=== PATIENT | female | born 1985 | race Caucasian/White ===

== ENCOUNTER 2020-02-29 14:52 | Emergency (ER) | payer MEDICAID ==
[~2020-02-29] VITALS: Ht 157.5 cm; Wt 59.0 kg
[~2020-02-29 14:52] MED LIST: CLON-527 PO; SERT25TA PO
--- NOTE | 2020-02-29 15:40 | NUR ---
PT PLACED IN ROOM T2 TILL ROOM AVAILABLE.
--- NOTE | 2020-02-29 16:00 | NUR ---
PT REMAINS CALM AND COOPERATIVE AND DENIES NEEDS AT PRESENT TIME.
--- NOTE | 2020-02-29 16:15 | NUR ---
PT GIVEN WARM BLANKETS PT COLD, PT DENIES FURTHER NEEDS.
[2020-02-29 17:27] LABS: BASOPHILS # (AUTO) 0.1 X10'3 (0-0.2); BASOPHILS % (AUTO) 0.7 % (0-1); EOSINOPHILS # (AUTO) 0.1 X10'3 (0-0.9); EOSINOPHILS % (AUTO) 1.4 % (0-6); HEMATOCRIT 43.9 % (35.0-45.0); HEMOGLOBIN 14.4 g/dl (12.0-16.0); LYMPHOCYTES # (AUTO) 2.8 X10'3 (1.1-4.8); LYMPHOCYTES % (AUTO) 27.4 % (21-51); MEAN CORPUSCULAR HEMOGLOBIN 31.3 PG (27.0-31.0); MEAN CORPUSCULAR HGB CONC 32.8 g/dL (33.0-36.5); MEAN CORPUSCULAR VOLUME 95.4 FL (78-98); MEAN PLATELET VOLUME 6.8 FL (7.4-10.4); MONOCYTES # (AUTO) 0.7 X10'3 (0-0.9); MONOCYTES % (AUTO) 7.3 % (2-12); NEUTROPHILS # (AUTO) 6.5 X10'3 (1.8-7.7); NEUTROPHILS % (AUTO) 63.2 % (42-75); PLATELET COUNT 309 X10'3 (140-440); RED CELL DISTRIBUTION WIDTH 14.2 % (11.5-14.5); WHITE BLOOD COUNT 10.2 X10'3 (4.5-11.0)
--- NOTE | 2020-02-29 17:46 | NUR ---
Pt. brought over to bed 25, patient is tearful.
[2020-02-29 17:53] LABS: ALANINE AMINOTRANSFERASE 23 U/L (12-78); ALBUMIN 3.9 G/DL (3.4-5.0); ALBUMIN/GLOBULIN RATIO 1.1 (1.1-1.5); ALKALINE PHOSPHATASE 79 IU/L (46-116); ANION GAP 9 (8-16); ASPARTATE AMINO TRANSFERASE 16 U/L (10-37); BILIRUBIN,TOTAL 0.4 MG/DL (0.1-1.0); BLOOD UREA NITROGEN 8 MG/DL (7-18); BUN/CREATININE RATIO 11.3 (6.6-38.0); CALCIUM 8.8 MG/DL (8.5-10.1); CHLORIDE 108 MMOL/L (99-107); CREATININE 0.71 MG/DL (0.40-0.90); GLUCOSE 93 MG/DL (70-104); SODIUM 144 MMOL/L (135-145); TOTAL CARBON DIOXIDE 26.6 MMOL/L (24-32); TOTAL PROTEIN 7.5 G/DL (6.4-8.2); eGFR > 90 ML/MIN
--- NOTE | 2020-02-29 17:56 | NUR ---
registration checking in patient
[2020-02-29 17:59] LABS: ETHANOL < 0.010 GM/DL (0.0-0.010)
[2020-02-29 18:06] LABS: URINE HCG NEGATIVE (NEG)
[2020-02-29 18:18] LABS: COLOR,URINE YELLOW (Yellow); GLUCOSE, URINE NEGATIVE (Neg); KETONES,URINE NEGATIVE (Neg); LEUKOCYTE ESTERASE ,URINE NEGATIVE (Neg); NITRITES, URINE NEGATIVE (Neg); OCCULT BLOOD,URINE LARGE (Neg); PH,URINE 5.5 (4.8-8.0); PROTEIN,URINE NEGATIVE (Neg); UROBILINOGEN,URINE 0.2 E.U/dL (0.2-1.0)
[2020-02-29 18:19] LABS: URINE AMPHETAMINE SCREEN NEGATIVE (Neg); URINE BARBITUATE SCREEN NEGATIVE (Neg); URINE BENZODIAZEPINES SCREEN NEGATIVE (Neg); URINE CANNABINOID SCREEN POSITIVE (Neg); URINE COCAINE SCREEN NEGATIVE (Neg); URINE METHADONE SCREEN NEGATIVE (Neg); URINE OPIATE SCREEN NEGATIVE (Neg); URINE PHENCYCLIDINE SCREEN NEGATIVE (Neg)
[2020-02-29 18:41] LABS: UA COLLECTION TYPE NON-SPECIFIED
[2020-02-29 18:43] LABS: CLARITY,URINE SLIGHTLY CLOUDY (Clear)
[2020-02-29 18:44] LABS: BACTERIA,URINE NONE SEEN /HPF (Neg); RBC,URINE 0-2 /HPF (0-2); SQUAMOUS EPITHELIAL CELL,UR FEW /LPF (FEW); WBC,URINE 0-4 /HPF (0-4)
--- NOTE | 2020-02-29 19:07 | NUR ---
Pt states she is going through outpatient rehab through [facility] and her ex has been taking her to [facility] for 2 years. She is under a lot of stress with this and the counselor at [facility] suggested she come her.
--- NOTE | 2020-02-29 20:00 | NUR ---
Pt eating dinner. Late dinner tray served.
--- NOTE | 2020-02-29 21:00 | NUR ---
[facility] has assessed pt.
--- NOTE | 2020-02-29 22:00 | NUR ---
Pt resting quietly, respirations normal, no s/s of distress.
--- NOTE | 2020-02-29 23:22 | NUR ---
Pt resting quietly, respirations normal, no s/s of distress.
--- NOTE | 2020-03-01 | NUR ---
Pt resting quietly, respirations normal, no s/s of distress.
--- NOTE | 2020-03-01 01:00 | NUR ---
Pt resting quietly, respirations normal, no s/s of distress.
--- NOTE | 2020-03-01 02:00 | NUR ---
Pt resting quietly, respirations normal, no s/s of distress.
--- NOTE | 2020-03-01 03:34 | NUR ---
Pt resting quietly, respirations normal, no s/s of distress.
--- NOTE | 2020-03-01 05:12 | NUR ---
Pt resting quietly, respirations normal, no s/s of distress.
[2020-03-01 05:57] VITALS: BP 101/50
--- NOTE | 2020-03-01 07:00 | NUR ---
informed that the night nurse did a nurse to nurse at [facility] during the night.
[2020-03-01] MEDS ORDERED: SERT50TA PO (09:19)
[2020-03-01] MEDS ORDERED: CHOL400T27 PO (09:19)
[2020-03-01] MEDS ORDERED: GABA300C PO (09:19)
[2020-03-01] MEDS ORDERED: HYDR-3686 PO (09:19)
[2020-03-01] MEDS ORDERED: CLON-527 PO (09:19)
[2020-03-01] MEDS ORDERED: ALBU8HFA PO (09:19)
--- NOTE | 2020-03-01 10:07 | NUR ---
just informed that [facility] is accepting the pt and informed the pt of this. pt is getting dressed in her clothes as transport should be here any minute.
[2020-03-01] MEDS ORDERED: albuterol 2.5 MG/3 ML nebule NEB PRN (10:10)
[2020-03-01] MEDS ORDERED: hydrOXYzine 25 MG tablet PO PRN (10:10)
[2020-03-01] MEDS ORDERED: clonazePAM 1mg tablet PO SCH (20:00)
[2020-03-01] MEDS ORDERED: gabapentin 300mg capsule PO SCH (21:00)
[2020-03-02] MEDS ORDERED: cholecalciferol (vitamin D) 400 unit tablet PO SCH (08:00)
[2020-03-02] MEDS ORDERED: sertraline 50mg tablet PO SCH (08:00)
== END 2020-03-01 10:15 ==
LOC: ER 14:52
DX: F32.9 Major depressive disorder, single episode, unspecified (principal); F17.200 Nicotine dependence, unspecified, uncomplicated; F12.90 Cannabis use, unspecified, uncomplicated; Z79.899 Other long term (current) drug therapy
CPT/HCPCS: 36415; 80053; 80305; 80320; 81001; 81025; 84443; 85025; 99285

== ENCOUNTER 2022-12-22 11:11 | Emergency (ER) | payer MEDICAID ==
[~2022-12-22] VITALS: Ht 158.8 cm; Wt 65.9 kg
[~2022-12-22 11:11] MED LIST changes: +ALBU8HFA PO; +CHOL400T58 PO; +GABA300C PO; +HYDR-3686 PO; -SERT25TA PO; +SERT50TA PO
[2022-12-22 12:19] LABS: ALANINE AMINOTRANSFERASE 26 U/L (12-78); ALBUMIN 4.4 G/DL (3.4-5.0); ALBUMIN/GLOBULIN RATIO 1.3 (1.1-1.5); ALKALINE PHOSPHATASE 80 IU/L (46-116); ANION GAP 13 (8-16); ASPARTATE AMINO TRANSFERASE 20 U/L (10-37); BASOPHILS % (AUTO) 0.3 % (0-1); BILIRUBIN,TOTAL 0.6 MG/DL (0.1-1.0); BLOOD UREA NITROGEN 14 MG/DL (7-18); BUN/CREATININE RATIO 18.4 (10.0-20.0); CALCIUM 9.6 MG/DL (8.5-10.1); CHLORIDE 104 MMOL/L (99-107); CREATININE 0.76 MG/DL (0.40-0.90); EOSINOPHILS % (AUTO) 0.1 % (0-6); ETHANOL < 0.010 GM/DL (0.0-0.010); GLUCOSE 91 MG/DL (70-104); HEMATOCRIT 46.7 % (35.0-45.0); HEMOGLOBIN 15.4 g/dl (12.0-16.0); LYMPHOCYTES % (AUTO) 17.8 % (21-51); MEAN CORPUSCULAR HGB CONC 33.1 g/dL (33.0-36.5); MEAN CORPUSCULAR VOLUME 93.8 FL (78-98); MEAN PLATELET VOLUME 7.7 FL (7.4-10.4); MONOCYTES # (AUTO) 0.6 X10'3 (0-0.9); MONOCYTES % (AUTO) 5.7 % (2-12); NEUTROPHILS # (AUTO) 8.5 X10'3 (1.8-7.7); NEUTROPHILS % (AUTO) 76.1 % (42-75); PLATELET COUNT 234 X10'3 (140-440); RED BLOOD COUNT 4.97 X10'6 (4.20-5.60); RED CELL DISTRIBUTION WIDTH 13.9 % (11.5-14.5); SODIUM 137 MMOL/L (135-145); TOTAL CARBON DIOXIDE 20.4 MMOL/L (24-32); TOTAL PROTEIN 7.9 G/DL (6.4-8.2); WHITE BLOOD COUNT 11.1 X10'3 (4.5-11.0); eGFR 86 ML/MIN
--- NOTE | 2022-12-22 12:37 | NUR ---
Patient ambulatory from [facility] to ED OF bed 22. Patient appears agitated. Continue to monitor.
[2022-12-22] MEDS ORDERED: POTASSIUM BICARB 20meq eff tab 20 MEQ TABLET.EFF PO STA (12:56)
[2022-12-22] MEDS ORDERED: OLANZapine 2.5MG tablet PO STA (12:56)
[2022-12-22] MEDS ORDERED: magnesium oxide 400mg tablet PO ONE (13:00)
[2022-12-22] MEDS ORDERED: olanzapine 10mg tablet PO STA (13:01)
--- NOTE | 2022-12-22 13:05 | NUR ---
Patient states she is feeling suicidal. Patient states she lost custody of her son about 2-3 weeks ago. Patient became tearful. Patient is homeless. RN asked patient if she has been diagnosed with schizophrenia. Patient states she has but states she does not have schizophrenia. Patient does not want any medication. Continue to monitor.
[2022-12-22] MEDS ORDERED: CLON0.5T4 PO (13:08)
[2022-12-22] MEDS ORDERED: SERT50TA PO (13:08)
[2022-12-22] MEDS ORDERED: HYDR-3686 PO (13:08)
[2022-12-22] MEDS ORDERED: TRAZ-251 PO (13:08)
--- NOTE | 2022-12-22 14:10 | NUR ---
Patient is refusing all medication. K+ in juice at bedside. Patient appears paranoid. Patient did eat all of her food. Continue to monitor.
[2022-12-22] MEDS ORDERED: magnesium hydroxide 30ml (MOM) UD suspension PO ONE (14:15)
--- NOTE | 2022-12-22 14:33 | NUR ---
Patient asked for something for constipation. RN asked if she wanted M.O.M. or prune juice. Patient stated M.O.M. RN opened med in front of patient but patient refused. RN attempted to convince patient but to no avail. Continue to monitor.
--- NOTE | 2022-12-22 15:35 | NUR ---
Patient took the K+ and the M.O.M. Then she went to the to give a urine sample. No distress observed. Continue to monitor.
[2022-12-22 15:50] LABS: CLARITY,URINE SLIGHTLY CLOUDY (Clear); COLOR,URINE YELLOW (Yellow); GLUCOSE, URINE NEGATIVE (Neg); KETONES,URINE >=80 mg/dl (Neg); LEUKOCYTE ESTERASE ,URINE NEGATIVE (Neg); NITRITES, URINE NEGATIVE (Neg); OCCULT BLOOD,URINE MODERATE (Neg); PROTEIN,URINE TRACE mg/dl (Neg); UA COLLECTION TYPE CLN CATCH MIDSTREAM
[2022-12-22 15:53] LABS: URINE HCG NEGATIVE (NEG)
[2022-12-22 16:02] LABS: URINE AMPHETAMINE SCREEN NEGATIVE (Neg); URINE BARBITUATE SCREEN NEGATIVE (Neg); URINE BENZODIAZEPINES SCREEN POSITIVE (Neg); URINE CANNABINOID SCREEN POSITIVE (Neg); URINE COCAINE SCREEN NEGATIVE (Neg); URINE METHADONE SCREEN NEGATIVE (Neg); URINE OPIATE SCREEN NEGATIVE (Neg); URINE PHENCYCLIDINE SCREEN NEGATIVE (Neg)
[2022-12-22 16:07] LABS: MUCUS STRANDS MANY /LPF (Neg); SQUAMOUS EPITHELIAL CELL,UR MANY /LPF (FEW)
[2022-12-22 16:10] LABS: BACTERIA,URINE 1+ /HPF (Neg); WBC,URINE 0-4 /HPF (0-4)
[2022-12-22] MEDS ORDERED: clonazePAM 0.5mg tablet PO PRN (18:00)
[2022-12-22] MEDS ORDERED: albuterol 2.5 MG/3 ML nebule NEB PRN (18:00)
[2022-12-22] MEDS ORDERED: traZODone 50mg tablet PO PRN (18:00)
[2022-12-22] MEDS ORDERED: hydrOXYzine 25 MG tablet PO PRN (18:00)
[2022-12-22] MEDS: OLANZapine 5mg rapidly disint. tablet PO SCH (20:00)
--- NOTE | 2022-12-22 20:28 | NUR ---
Sleeping at start of shift. Woke up a little while ago, refused meds. Refused to have arm band scanned "you are not stealing my idenity" Pt oriented to person and place. When asked why she was here said "I was protecting my family I am not crazy" Keeps her head covered most of the time.
[2022-12-22] MEDS: gabapentin 300mg capsule PO SCH (21:00)
--- NOTE | 2022-12-22 23:34 | NUR ---
Pt had become increasingly agitated kicking the foot board yelling for her children. Continues to refuse medications. Dr. Nunez informed he came to evaluate pt no new orders. At this time pt is quiet covering head with sheet quiet at this time, yells when touched.
[2022-12-22] MEDS ORDERED: LORazepam 2 mg/ml vial IM ONE (23:55)
[2022-12-22] MEDS ORDERED: OLANZapine **IM** 10 mg inj. IM ONE ×2 (23:55→23:57)
[2022-12-22] MEDS ORDERED: LORazepam 2 mg/ml vial ONE (23:57)
[2022-12-23] MEDS ORDERED: OLANZapine **IM** 10 mg inj. IM PRN (00:05)
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
--- NOTE | 2022-12-23 04:12 | NUR ---
Sleeping resp even and unlabored.
--- NOTE | 2022-12-23 05:48 | NUR ---
Pt sleeping resp even and unlabored.
--- NOTE | 2022-12-23 06:45 | NUR ---
Patient sleeping on right side. No distress observed. Continue to monitor.
--- NOTE | 2022-12-23 08:17 | NUR ---
Patient sleeping and does not want to get up to eat. Continue to monitor.
--- NOTE | 2022-12-23 09:10 | NUR ---
Lesly ALLAN, attempted to speak to patient. Patient did not want to wake up to talk. Continue to monitor.
--- NOTE | 2022-12-23 10:20 | NUR ---
Lesly ALLAN, speaking with patient. Patient is very guarded. Continue to monitor.
--- NOTE | 2022-12-23 12:06 | NUR ---
Patient eating lunch. No distress observed. Continue to monitor.
--- NOTE | 2022-12-23 12:58 | NUR ---
Patient crying intermittenly. Patient is missing her son but patient won't talk about anything to RN. Continue to monitor.
[2022-12-23] MEDS: gabapentin 300mg capsule PO SCH ×4 (13:00→22:42)
[2022-12-23] MEDS: OLANZapine 5mg rapidly disint. tablet PO SCH ×2 (13:18→20:00)
[2022-12-23] MEDS: sertraline 50mg tablet PO SCH (13:19)
--- NOTE | 2022-12-23 14:03 | NUR ---
Patient has been quiet and reclining with her eyes closed. No distress observed. Continue to monitor.
--- NOTE | 2022-12-23 15:52 | NUR ---
[facility] BY DR AUGUSTINE AT 1455. TRANSFER SCHEDULED FOR TOMORROW 12/24 AT 1300. PATIENT AWARE OF ACCEPTANCE AND LEAVING TOMORROW. NO DISTRESS OBSERVED.
--- NOTE | 2022-12-23 17:25 | NUR ---
Patient appears to be resting on her left side. No distress observed. Continue to monitor.
[2022-12-23 17:49] VITALS: BP 121/79
--- NOTE | 2022-12-23 18:54 | NUR ---
Pt up to bathroom, speaks softly when acknologing nurse. RR even and unlabored.
--- NOTE | 2022-12-23 20:00 | NUR ---
Pt refused her HS medications.
--- NOTE | 2022-12-23 22:42 | NUR ---
Pt asked for her HS medications, then refused all but Gabapentin 300mg.
--- NOTE | 2022-12-23 23:54 | NUR ---
Pt is in her assigned bed, awake asking for a mirror. RR even and unlabored, pt in NAD.
--- NOTE | 2022-12-24 00:39 | NUR ---
Pt aasked for a warm blanket, she is tearful and scared. [employer] explained this is just a holding place until we can get her admitted to a unit. Pt is guarded and started to talk then shut down when I asked her to speak up since I couldn't hear her. monitor for safety.
--- NOTE | 2022-12-24 01:09 | NUR ---
Breaking assigned RN for lunch. Pt ambulated to the bathroom, intensely looking at staff as she passes nurses station. Asked to return to her room she reluctanly walks back.
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
--- NOTE | 2022-12-24 02:06 | NUR ---
Pt was lying in bed crying, came to nurses station and said "I will take my pills now." Pt then stared past rewriter with a blank stare, mumbling to herself for at least a minute. Boom Cat Operator attempted to administer PRN Trazadone, pt refused at first, then came to nurses station and asked for it. Pt states "I just want to sleep."
--- NOTE | 2022-12-24 02:45 | NUR ---
Pt approach expert medical writer asking for a shotn to help with her anxiety/agitation. Zyprexa 10 mg IM given in left thigh. Pt is lying in her assigned bed. RR even and unlabored.
[2022-12-24] MEDS ORDERED: LORazepam 2 mg/ml vial IM STA (04:00)
--- NOTE | 2022-12-24 04:06 | NUR ---
Pt is still agitated that she can't sleep, she can't leave. Pt was seen peering out of the curtain looking at the exit door until [place] EMT saw her. She is asking for something else to help. Ativan 2mg IM given in right thigh. Pt is resting in her bed.
--- NOTE | 2022-12-24 06:48 | NUR ---
Patient sleeping. No distress observed. Continue to monitor.
[2022-12-24] MEDS: OLANZapine 5mg rapidly disint. tablet PO SCH (08:00)
--- NOTE | 2022-12-24 08:32 | NUR ---
Patient eating breakfast. No distress observed. Continue to monitor.
[2022-12-24] MEDS ORDERED: gabapentin 300mg capsule PO ONE (09:00)
[2022-12-24] MEDS: sertraline 50mg tablet PO SCH (09:08)
--- NOTE | 2022-12-24 09:10 | NUR ---
Patient took her morning meds, including the Zyprexa. No distress observed. Continue to monitor.
--- NOTE | 2022-12-24 11:10 | NUR ---
Patient sleeping. No distress observed. Continue to monitor.
--- NOTE | 2022-12-24 13:09 | NUR ---
Patient slept through lunch. Patient did not fall asleep until after 0400. No distress observed. Continue to monitor.
== END 2022-12-24 14:10 ==
LOC: ER 11:12
DX: F20.9 Schizophrenia, unspecified (principal); E87.6 Hypokalemia; Z20.822 Contact with and (suspected) exposure to COVID-19; F32.9 Major depressive disorder, single episode, unspecified; F12.90 Cannabis use, unspecified, uncomplicated; Z72.89 Other problems related to lifestyle; Z79.899 Other long term (current) drug therapy
CPT/HCPCS: 36415; 80053; 80305; 80320; 81001; 81025; 84443; 85025; 87811; 96372; 99285; J2060; J3490

== ENCOUNTER 2024-02-23 13:30 | Outpatient (CLI) | payer MEDICAID ==
[~2024-02-23 13:30] MED LIST changes: -CHOL400T58 PO; -CLON-527 PO; +CLON0.5T4 PO; +TRAZ-251 PO
== END 2024-02-23 23:59 | disposition home or self-care (01) ==
LOC: RAD 13:30
PROVIDERS: ATTEND Nurse Practitioner Family
DX: Z97.5 Presence of (intrauterine) contraceptive device (principal)
CPT/HCPCS: 76830; 93976